=== PATIENT | male | born 1975 ===

== ENCOUNTER → 2016-12-06 | Outpatient (CLI) | payer BC ==
[~2016-12-06] MED LIST: AMOX1TAB12 PO; PRED20TA PO
[2016-12-06 17:08] VITALS: BP 127/77
--- NOTE | 2016-12-06 17:08 | Urgent Care T Sheet Gen (E) ---
Intake General Temperature (Fahrenheit): 98.0 Pulse: 59 Blood Pressure Systolic: 127 Blood Pressure Diastolic: 77 Respirations: 18 SPO2: 97 Description of Symptoms Patient presents requesting physical exam for [facility]. No issues. History of Present Illness Home Meds Active Scripts Prednisone 20 Mg [id number] Mg PO BID #6 TAB Prov:CHUCKIE LOPEZ 01/30/16 Prednisone 20 Mg [id number] Mg PO BID #6 TAB Prov:CHUCKIE LOPEZ 11/07/15 Amoxicillin/Clavulanate Potassium (Augmentin 875mg/125mg)1 Each Tablet1 Tab PO BID #14 TAB Ref 0 Prov:CHUCKIE LOPEZ 11/07/15 Respiratory Constitutional Symptoms: No syptoms reported EENTM: No symptoms reported Respiratory: No symptoms reported Cardiovascular: No symptoms reported Gastrointestinal/Abdominal: No symptoms reported Genitourinary: No symptoms reported All Other Systems Reviewed Remaining Systems: All other systems reviewed with negative findings Physical Exam Physical Exam General Appearance: WD/WN No apparent distress Eyes, Ears, Nose, Throat Ex: PERRL/EOMI TMs normal Pharynx normal Neck Exam: SuppleNo Lymphadenopathy Respiratory Exam: Lungs clear Normal breath sounds Cardiovascular Exam: Regular rate, rhythm GI/ Exam: Non tender No organomegaly Normal bowel sounds Skin Exam: Normal color Warm/dry/intact No rashes Extremity Exam: Non-tender Full range of motion Neurologic/Psychiatric Exam: Oriented times 4 CN's II-X nml No motor deficits No sensory deficits (normal Romberg) Comment genital exam was deferred. no complaints or concerns. Departure Urgent Care Impression Impression: Primary Impression: Physical exam for camp Departure Disposition: 01 HOME OR SELF-CARE Condition: Stable Referrals: LUIS GRESHAM MD (PCP) Additional Instructions: Patient is cleared for all activities. Paperwork was filled and scanned into computer All questions were answered. Return as needed. End of report . CHUCKIE LOPEZ December 06, 2016 17:08
== END ==
LOC: MHUC 16:39
PROVIDERS: ATTEND Physician Assistant
DX: Z02.89 Encounter for other administrative examinations (principal)
CPT/HCPCS: 99213